=== PATIENT | female | born 1990 | race Caucasian/White ===

== ENCOUNTER 2017-06-05 07:13 | Inpatient (IN) ==
[2017-06-05] MEDS ORDERED: TORADOL IV ONE (07:41)
[2017-06-05] MEDS ORDERED: NS 1,000 ML IV ONE (07:41)
[2017-06-05] MEDS ORDERED: ZOFRAN IV ONE (07:41)
[2017-06-05 08:15] LABS: MANUAL DIFF NEEDED? NO; URINE SOURCE CLEAN CATCH
[2017-06-05 08:22] LABS: BILIRUBIN URINE NEGATIVE (NEGATIVE); BLOOD URINE NEGATIVE (NEGATIVE); COLOR YELLOW; GLUCOSE URINE NEGATIVE (NEGATIVE); LEUKOCYTES URINE LARGE (NEGATIVE); NITRITE URINE NEGATIVE (NEGATIVE); PROTEIN URINE 50 mg/dL (NEGATIVE); SP GRAVITY URINE 1.041; TURBIDITY URINE HAZY (CLEAR); UROBILINOGEN URINE 4 mg/dL (NORMAL)
[2017-06-05 08:23] LABS: BASO% 0.2 % (0.0-0.8); EOS% 2.4 % (0.0-10.0); HEMATOCRIT 39.9 % (37.0-47.0); HEMOGLOBIN 12.8 g/dL (12.0-16.0); IMM GRAN# 0.03 X1000 (0.0-0.04); IMM GRAN% 0.2 % (0.0-0.5); LYMPH# 2.76 X1000 (1.2-3.4); LYMPH% 21.9 % (20.5-51.1); MCH 26.8 PG (27-31); MCHC 32.1 g/dL (33-37); MCV 83.6 FL (81-99); MONO# 0.77 X1000 (0.11-0.59); MONO% 6.1 % (1.7-9.3); NEUT% 69.2 % (42.2-75.2); PLT 385 X1000 (130-400); RBC 4.77 XMIL (4.2-5.4); URINE MICRO REVIEW NEEDED? YES
[2017-06-05 08:26] LABS: UR EPITHELIAL CELLS >10 /HPF (<10); URINE BACTERIA 1+ /HPF; URINE CULTURE NEEDED? YES; URINE RBC <10 /HPF (<10); URINE WBC TNTC /HPF (<10)
[2017-06-05 08:40] LABS: URINE CASTS NONE SEEN; URINE CRYSTALS NONE SEEN
[2017-06-05 08:43] LABS: AGAP 11; ALBUMIN 3.9 g/dL (3.5-5.0); ALKALINE PHOSPHATASE 101 U/L (32-104); AMYLASE 12 U/L (20-200); BUN 13 mg/dL (8-22); CALCIUM 8.8 mg/dL (8.8-10.2); CHLORIDE 99 mmol/L (98-107); COSMO 278; GOT 96 U/L (10-30); GPT 69 U/L (10-36); LIPASE 20 U/L (13-60); POTASSIUM 3.6 mmol/L (3.5-5.1); SODIUM 139 mmol/L (136-145); TCO2 29 mmol/L (25-35); TOTAL BILIRUBIN 0.22 mg/dL (0.20-1.00); TOTAL PROTEIN 7.1 g/dL (6.3-8.3)
[2017-06-05] MEDS ORDERED: ROCEPHIN 2 GM in NS 50 ML IV ONE (08:56)
[2017-06-05] MEDS ORDERED: MORPHINE IV ONE (09:10)
[2017-06-05] MEDS ORDERED: DIPRIVAN 1% ONE (10:36)
[2017-06-05] MEDS ORDERED: VERSED ONE (10:36)
[2017-06-05] MEDS ORDERED: ZOFRAN ONE ×2 (10:42→12:00)
[2017-06-05] MEDS ORDERED: XYLOCAINE-MPF 2% ONE (10:42)
[2017-06-05] MEDS ORDERED: QUELICIN (DOSE) ONE (10:42)
[2017-06-05] MEDS ORDERED: FENTANYL ONE (10:43)
[2017-06-05] MEDS ORDERED: REGLAN ONE (11:11)
[2017-06-05] MEDS ORDERED: PEPCID ONE (11:11)
[2017-06-05] MEDS ORDERED: SODIUM CHLORIDE 0.9% ONE (11:13)
[2017-06-05] MEDS ORDERED: MARCAINE 0.25% PF ONE (11:13)
[2017-06-05] MEDS ORDERED: LR 1,000 ML ONE ×2 (11:13→12:09)
[2017-06-05] MEDS ORDERED: OFIRMEV 1000 MG/ISOTONIC SOLN 1,000 MG/100 ML BOTTLE ONE (11:45)
[2017-06-05] MEDS ORDERED: DECADRON ONE (11:45)
[2017-06-05] MEDS ORDERED: ROBINUL ONE (13:12)
[2017-06-05] MEDS ORDERED: NS 1,000 ML ONE (13:58)
[2017-06-05] MEDS ORDERED: TORADOL ONE (14:32)
[2017-06-05] MEDS ORDERED: NORCO-10 ONE (15:00)
[2017-06-05] MEDS: DILAUDID IV PRN ×3 (15:48→22:17)
[2017-06-05] MEDS: NS 1,000 ML IV SCH (15:50)
[2017-06-05] MEDS: ROCEPHIN 1 GM in NS 50 ML IV SCH (21:05)
[2017-06-05] MEDS: NORCO-10 PO PRN (21:05)
[2017-06-05] MEDS: ZOFRAN IV PRN (22:17)
[2017-06-05] MEDS ORDERED: MYLICON PO PRN (22:54)
[2017-06-05] MEDS: MYLICON PO PRN (23:10)
[2017-06-06] MEDS: DILAUDID IV PRN ×9 (00:17→23:06)
[2017-06-06] MEDS: NS 1,000 ML IV SCH ×2 (02:07→16:45)
[2017-06-06 05:25] LABS: BASO% 0.1 % (0.0-0.8); HEMATOCRIT 42.3 % (37.0-47.0); HEMOGLOBIN 13.4 g/dL (12.0-16.0); IMM GRAN# 0.02 X1000 (0.0-0.04); IMM GRAN% 0.2 % (0.0-0.5); LYMPH# 0.87 X1000 (1.2-3.4); LYMPH% 7.8 % (20.5-51.1); MCH 26.7 PG (27-31); MCHC 31.7 g/dL (33-37); MCV 84.4 FL (81-99); MONO# 0.55 X1000 (0.11-0.59); MONO% 4.9 % (1.7-9.3); MPV 10.4 FL (7.4-10.4); PLT 459 X1000 (130-400); RBC 5.01 XMIL (4.2-5.4)
[2017-06-06 05:26] LABS: MANUAL DIFF NEEDED? NO
[2017-06-06 05:38] LABS: AGAP 9; ALBUMIN 3.9 g/dL (3.5-5.0); ALKALINE PHOSPHATASE 98 U/L (32-104); BUN 7 mg/dL (8-22); CALCIUM 8.7 mg/dL (8.8-10.2); CHLORIDE 100 mmol/L (98-107); COSMO 275; GOT 70 U/L (10-30); GPT 100 U/L (10-36); POTASSIUM 4.7 mmol/L (3.5-5.1); SODIUM 138 mmol/L (136-145); TCO2 29 mmol/L (25-35); TOTAL BILIRUBIN 0.29 mg/dL (0.20-1.00); TOTAL PROTEIN 7.4 g/dL (6.3-8.3)
[2017-06-06] MEDS: MYLICON PO PRN ×2 (08:08→17:35)
[2017-06-06] MEDS: ROCEPHIN 1 GM in NS 50 ML IV SCH ×2 (08:39→20:36)
[2017-06-06] MEDS: MILK OF MAGNESIA PO PRN (08:47)
[2017-06-06] MEDS: COLACE PO PRN (08:47)
[2017-06-06] MEDS: NORCO-10 PO PRN (13:42)
[2017-06-06] MEDS ORDERED: TORADOL IV ONE (17:23)
[2017-06-06] MEDS ORDERED: ROCEPHIN ONE (20:01)
[2017-06-07] MEDS: NS 1,000 ML IV SCH ×2 (01:02→09:50)
[2017-06-07] MEDS: DILAUDID IV PRN ×6 (01:07→22:09)
[2017-06-07 05:21] LABS: MANUAL DIFF NEEDED? NO
[2017-06-07 05:29] LABS: BASO% 0.2 % (0.0-0.8); EOS# 0.07 X1000 (0.0-0.7); EOS% 0.7 % (0.0-10.0); HEMATOCRIT 39.7 % (37.0-47.0); HEMOGLOBIN 12.3 g/dL (12.0-16.0); IMM GRAN# 0.03 X1000 (0.0-0.04); IMM GRAN% 0.3 % (0.0-0.5); LYMPH# 1.94 X1000 (1.2-3.4); LYMPH% 19.6 % (20.5-51.1); MCH 26.7 PG (27-31); MCV 86.1 FL (81-99); MONO# 0.98 X1000 (0.11-0.59); MONO% 9.9 % (1.7-9.3); MPV 10.1 FL (7.4-10.4); NEUT% 69.3 % (42.2-75.2); PLT 393 X1000 (130-400); RBC 4.61 XMIL (4.2-5.4)
[2017-06-07] MEDS: MYLICON PO PRN ×2 (05:38→18:08)
[2017-06-07 05:51] LABS: AGAP 11; ALBUMIN 3.5 g/dL (3.5-5.0); ALKALINE PHOSPHATASE 85 U/L (32-104); BUN 8 mg/dL (8-22); CALCIUM 8.7 mg/dL (8.8-10.2); CHLORIDE 97 mmol/L (98-107); COSMO 275; GOT 30 U/L (10-30); GPT 68 U/L (10-36); POTASSIUM 4.2 mmol/L (3.5-5.1); SODIUM 138 mmol/L (136-145); TCO2 30 mmol/L (25-35); TOTAL BILIRUBIN 0.32 mg/dL (0.20-1.00)
[2017-06-07] MEDS: COLACE PO PRN ×2 (05:55→18:13)
[2017-06-07] MEDS: ZOFRAN IV PRN ×5 (05:55→23:31)
[2017-06-07] MEDS: NORCO-10 PO PRN ×5 (05:55→23:30)
[2017-06-07] MEDS: MILK OF MAGNESIA PO PRN (08:24)
[2017-06-07] MEDS: ROCEPHIN 1 GM in NS 50 ML IV SCH ×2 (08:24→21:06)
[2017-06-07] MEDS: LOVENOX SUBQ SCH (09:50)
[2017-06-07] MEDS: PERIDEX MT SCH (21:05)
[2017-06-07] MEDS ORDERED: MELATONIN PO ONE (23:47)
[2017-06-08] MEDS: DILAUDID IV PRN ×3 (00:59→23:31)
[2017-06-08] MEDS: MELATONIN PO SCH ×2 (02:41→20:56)
[2017-06-08] MEDS: NORCO-10 PO PRN ×2 (04:47→12:14)
[2017-06-08] MEDS: NS 1,000 ML IV SCH ×3 (04:47→23:53)
[2017-06-08 06:19] LABS: MANUAL DIFF NEEDED? NO
[2017-06-08 06:49] LABS: AGAP 11; ALBUMIN 3.3 g/dL (3.5-5.0); ALKALINE PHOSPHATASE 89 U/L (32-104); BUN 7 mg/dL (8-22); CALCIUM 8.7 mg/dL (8.8-10.2); CHLORIDE 93 mmol/L (98-107); COSMO 269; GOT 37 U/L (10-30); GPT 53 U/L (10-36); POTASSIUM 4.4 mmol/L (3.5-5.1); SODIUM 135 mmol/L (136-145); TCO2 31 mmol/L (25-35); TOTAL BILIRUBIN 0.62 mg/dL (0.20-1.00); TOTAL PROTEIN 6.7 g/dL (6.3-8.3)
[2017-06-08 07:09] LABS: BASO% 0.2 % (0.0-0.8); EOS# 0.12 X1000 (0.0-0.7); EOS% 1.1 % (0.0-10.0); HEMATOCRIT 38.9 % (37.0-47.0); HEMOGLOBIN 12.1 g/dL (12.0-16.0); IMM GRAN# 0.04 X1000 (0.0-0.04); IMM GRAN% 0.4 % (0.0-0.5); LYMPH# 1.57 X1000 (1.2-3.4); MCH 26.8 PG (27-31); MCHC 31.1 g/dL (33-37); MCV 86.1 FL (81-99); MONO# 1.19 X1000 (0.11-0.59); MONO% 11.4 % (1.7-9.3); MPV 9.8 FL (7.4-10.4); NEUT% 71.9 % (42.2-75.2); PLT 429 X1000 (130-400); RBC 4.52 XMIL (4.2-5.4)
[2017-06-08] MEDS: ROCEPHIN 1 GM in NS 50 ML IV SCH ×2 (08:53→20:57)
[2017-06-08] MEDS: PERIDEX MT SCH ×2 (08:54→20:56)
[2017-06-08] MEDS: LOVENOX SUBQ SCH (08:54)
[2017-06-08] MEDS ORDERED: MILK OF MAGNESIA PO ONE (14:15)
[2017-06-08] MEDS: TORADOL IV PRN ×2 (15:13→20:56)
[2017-06-09] MEDS: MYLICON PO PRN (00:38)
[2017-06-09 05:20] LABS: MANUAL DIFF NEEDED? NO
[2017-06-09 05:23] LABS: BASO% 0.2 % (0.0-0.8); EOS# 0.28 X1000 (0.0-0.7); EOS% 3.1 % (0.0-10.0); HEMATOCRIT 35.2 % (37.0-47.0); HEMOGLOBIN 10.8 g/dL (12.0-16.0); IMM GRAN# 0.02 X1000 (0.0-0.04); IMM GRAN% 0.2 % (0.0-0.5); LYMPH# 1.88 X1000 (1.2-3.4); LYMPH% 20.6 % (20.5-51.1); MCH 26.3 PG (27-31); MCHC 30.7 g/dL (33-37); MCV 85.9 FL (81-99); MONO# 0.99 X1000 (0.11-0.59); MONO% 10.8 % (1.7-9.3); MPV 9.9 FL (7.4-10.4); NEUT% 65.1 % (42.2-75.2); PLT 382 X1000 (130-400)
[2017-06-09] MEDS: NS 1,000 ML IV SCH ×2 (06:35→08:19)
[2017-06-09] MEDS ORDERED: TORADOL IV PRN (07:57)
[2017-06-09] MEDS: NORCO-10 PO PRN ×3 (08:19→16:27)
[2017-06-09] MEDS: PERIDEX MT SCH ×2 (08:20→22:31)
[2017-06-09] MEDS: LOVENOX SUBQ SCH (08:20)
[2017-06-09] MEDS: MAALOX PLUS LIQUID PO PRN (15:57)
[2017-06-09] MEDS: TORADOL PO PRN ×2 (15:57→22:30)
[2017-06-09] MEDS: MELATONIN PO SCH (22:31)
[2017-06-10] MEDS: NORCO-10 PO PRN ×4 (03:43→22:15)
[2017-06-10] MEDS: ZOFRAN IV PRN ×2 (03:43→22:15)
[2017-06-10] MEDS: TORADOL PO PRN (04:38)
[2017-06-10] MEDS: NS 1,000 ML IV SCH (04:38)
[2017-06-10] MEDS: MYLICON PO PRN (08:00)
[2017-06-10] MEDS: LOVENOX SUBQ SCH ×2 (08:01→14:08)
[2017-06-10] MEDS: PERIDEX MT SCH ×2 (08:01→22:15)
[2017-06-10] MEDS: MELATONIN PO SCH (22:15)
[2017-06-11] MEDS: NORCO-10 PO PRN ×5 (01:07→21:25)
[2017-06-11] MEDS: TORADOL PO PRN ×3 (01:07→12:32)
[2017-06-11] MEDS: MAALOX PLUS LIQUID PO PRN (01:29)
[2017-06-11] MEDS: NS 1,000 ML IV SCH ×2 (01:30→21:33)
[2017-06-11] MEDS: PERIDEX MT SCH ×2 (08:12→21:23)
[2017-06-11] MEDS: LOVENOX SUBQ SCH ×2 (08:12→09:50)
[2017-06-11] MEDS: MILK OF MAGNESIA PO PRN (11:00)
[2017-06-11] MEDS ORDERED: ROBAXIN PO PRN (11:05)
[2017-06-11] MEDS ORDERED: ROBAXIN PO ONE (11:06)
[2017-06-11] MEDS ORDERED: DIFLUCAN PO ONE (11:30)
[2017-06-11] MEDS: ZOFRAN IV PRN (12:32)
[2017-06-11] MEDS: ROBAXIN PO PRN ×2 (16:09→22:47)
[2017-06-11] MEDS ORDERED: DILAUDID IV ONE (17:00)
[2017-06-11] MEDS ORDERED: DULCOLAX PR ONE (17:37)
[2017-06-11] MEDS: CARAFATE LIQUID PO SCH ×2 (17:54→21:23)
[2017-06-11] MEDS: DILAUDID IV ONE (17:55)
[2017-06-11] MEDS: PROTONIX IV SCH (18:08)
[2017-06-11] MEDS: SODIUM CHLORIDE 0.9% INJ SCH (18:08)
[2017-06-11] MEDS ORDERED: FLEET ENEMA PR ONE (18:20)
[2017-06-11] MEDS ORDERED: MIRALAX PO ONE (18:20)
[2017-06-11 18:58] LABS: MANUAL DIFF NEEDED? NO
[2017-06-11 19:00] LABS: BASO% 0.4 % (0.0-0.8); EOS# 0.31 X1000 (0.0-0.7); EOS% 3.2 % (0.0-10.0); HEMATOCRIT 37.6 % (37.0-47.0); HEMOGLOBIN 11.8 g/dL (12.0-16.0); IMM GRAN# 0.05 X1000 (0.0-0.04); IMM GRAN% 0.5 % (0.0-0.5); LYMPH% 13.5 % (20.5-51.1); MCH 26.5 PG (27-31); MCHC 31.4 g/dL (33-37); MCV 84.5 FL (81-99); MONO% 9.3 % (1.7-9.3); MPV 9.5 FL (7.4-10.4); NEUT% 73.1 % (42.2-75.2); PLT 427 X1000 (130-400); RBC 4.45 XMIL (4.2-5.4)
[2017-06-11 19:21] LABS: AGAP 15; ALBUMIN 3.4 g/dL (3.5-5.0); ALKALINE PHOSPHATASE 121 U/L (32-104); BUN 11 mg/dL (8-22); CALCIUM 8.8 mg/dL (8.8-10.2); CHLORIDE 97 mmol/L (98-107); COSMO 278; GOT 28 U/L (10-30); GPT 43 U/L (10-36); LIPASE 11 U/L (13-60); POTASSIUM 4.6 mmol/L (3.5-5.1); SODIUM 139 mmol/L (136-145); TCO2 27 mmol/L (25-35); TOTAL BILIRUBIN 0.65 mg/dL (0.20-1.00); TOTAL PROTEIN 6.4 g/dL (6.3-8.3)
[2017-06-11] MEDS: ZOSYN 3.375 GM in NS 50 ML IV SCH (21:22)
[2017-06-11] MEDS: MYLICON PO PRN (22:47)
[2017-06-11] MEDS: MELATONIN PO SCH (23:37)
[2017-06-12] MEDS: ZOSYN 3.375 GM in NS 50 ML IV SCH ×2 (01:09→08:29)
[2017-06-12] MEDS: NORCO-10 PO PRN ×6 (01:09→22:51)
[2017-06-12] MEDS: CARAFATE LIQUID PO SCH ×4 (03:30→21:38)
[2017-06-12] MEDS: ROBAXIN PO PRN ×2 (04:52→11:42)
[2017-06-12] MEDS: SODIUM CHLORIDE 0.9% INJ SCH ×2 (06:13→19:06)
[2017-06-12] MEDS: PROTONIX IV SCH ×2 (06:14→19:06)
[2017-06-12] MEDS: LOVENOX SUBQ SCH (08:30)
[2017-06-12] MEDS: ZOFRAN PO PRN (08:30)
[2017-06-12] MEDS ORDERED: DILAUDID IV ONE (09:21)
[2017-06-12] MEDS ORDERED: ZOFRAN IV ONE (09:21)
[2017-06-12] MEDS ORDERED: DILAUDID ONE (09:30)
[2017-06-12] MEDS: DILAUDID IV ONE (09:34)
[2017-06-12] MEDS: PERIDEX MT SCH ×2 (09:41→21:38)
[2017-06-12] MEDS: DILAUDID IV PRN ×4 (13:34→21:32)
[2017-06-12] MEDS: ZOFRAN IV PRN (16:22)
[2017-06-12] MEDS: MELATONIN PO SCH (21:38)
[2017-06-13] MEDS: CARAFATE LIQUID PO SCH ×4 (02:10→20:56)
[2017-06-13] MEDS: DILAUDID IV PRN ×6 (05:28→22:23)
[2017-06-13] MEDS: PROTONIX IV SCH ×2 (05:28→17:35)
[2017-06-13] MEDS: NORCO-10 PO PRN ×4 (06:18→23:58)
[2017-06-13 06:32] LABS: BASO% 0.2 % (0.0-0.8); EOS# 0.25 X1000 (0.0-0.7); EOS% 1.9 % (0.0-10.0); HEMATOCRIT 36.6 % (37.0-47.0); HEMOGLOBIN 11.3 g/dL (12.0-16.0); LYMPH# 1.24 X1000 (1.2-3.4); LYMPH% 9.5 % (20.5-51.1); MANUAL DIFF NEEDED? NO; MCHC 30.9 g/dL (33-37); MCV 87.4 FL (81-99); MONO# 1.55 X1000 (0.11-0.59); MONO% 11.9 % (1.7-9.3); MPV 9.4 FL (7.4-10.4); NEUT% 76.5 % (42.2-75.2); PLT 524 X1000 (130-400); RBC 4.19 XMIL (4.2-5.4)
[2017-06-13] MEDS: LOVENOX SUBQ SCH ×2 (07:46→10:23)
[2017-06-13] MEDS: ROBAXIN PO PRN ×2 (07:50→20:56)
[2017-06-13] MEDS: PERIDEX MT SCH ×2 (10:23→20:56)
[2017-06-13] MEDS: DIFLUCAN PO SCH (10:46)
[2017-06-13] MEDS: NS 1,000 ML IV SCH (12:09)
[2017-06-13] MEDS: SODIUM CHLORIDE 0.9% INJ SCH (17:35)
[2017-06-13] MEDS: MELATONIN PO SCH (20:56)
[2017-06-14] MEDS: ZOFRAN PO PRN
[2017-06-14] MEDS: CARAFATE LIQUID PO SCH ×4 (01:31→20:21)
[2017-06-14] MEDS: DILAUDID IV PRN ×7 (01:31→22:33)
[2017-06-14] MEDS: PROTONIX IV SCH ×3 (06:22→18:29)
[2017-06-14] MEDS: NORCO-10 PO PRN ×4 (06:22→20:21)
[2017-06-14] MEDS: SODIUM CHLORIDE 0.9% INJ SCH ×3 (06:22→16:04)
[2017-06-14 10:33] LABS: MANUAL DIFF NEEDED? NO
[2017-06-14 10:38] LABS: BASO% 0.2 % (0.0-0.8); EOS# 0.18 X1000 (0.0-0.7); EOS% 1.4 % (0.0-10.0); HEMATOCRIT 33.5 % (37.0-47.0); HEMOGLOBIN 10.3 g/dL (12.0-16.0); IMM GRAN# 0.08 X1000 (0.0-0.04); IMM GRAN% 0.6 % (0.0-0.5); LYMPH# 1.31 X1000 (1.2-3.4); LYMPH% 10.4 % (20.5-51.1); MCH 26.1 PG (27-31); MCHC 30.7 g/dL (33-37); MONO# 1.29 X1000 (0.11-0.59); MONO% 10.2 % (1.7-9.3); MPV 9.4 FL (7.4-10.4); NEUT% 77.2 % (42.2-75.2); PLT 541 X1000 (130-400); RBC 3.94 XMIL (4.2-5.4)
[2017-06-14 11:03] LABS: ALLEN TEST NO; BE 9.7 mmoll (-3.0-3.0); BLOOD TYPE ARTERIAL; DRAW SITE R BRACHIAL; METHB 1.3 % (0.0-1.5); PO2(98.6) 61 mmHg (60-100); SAMPLE BLOOD; SAO2 95.3 % (95.0-100.0); THB 10.8 g/dL (11.5-17.4); pH(98.6) 7.44 (7.35-7.45)
[2017-06-14] MEDS: LOVENOX SUBQ SCH (11:03)
[2017-06-14] MEDS: DIFLUCAN PO SCH (11:03)
[2017-06-14] MEDS: PERIDEX MT SCH ×2 (11:04→20:21)
[2017-06-14 11:08] LABS: MODALITY CANNULA; PCO2(98.6) 52 mmHg (35-45)
[2017-06-14 11:32] LABS: AGAP 10; ALBUMIN 2.9 g/dL (3.5-5.0); ALKALINE PHOSPHATASE 130 U/L (32-104); AMYLASE 7 U/L (20-200); BUN 9 mg/dL (8-22); CALCIUM 8.8 mg/dL (8.8-10.2); CHLORIDE 95 mmol/L (98-107); COSMO 277; GOT 16 U/L (10-30); GPT 33 U/L (10-36); POTASSIUM 4.3 mmol/L (3.5-5.1); SODIUM 138 mmol/L (136-145); TCO2 33 mmol/L (25-35); TOTAL BILIRUBIN 0.66 mg/dL (0.20-1.00); TOTAL PROTEIN 6.3 g/dL (6.3-8.3)
[2017-06-14] MEDS: MELATONIN PO SCH (20:21)
[2017-06-15] MEDS: NORCO-10 PO PRN ×6 (00:43→22:03)
[2017-06-15] MEDS: DILAUDID IV PRN ×3 (01:46→20:40)
[2017-06-15] MEDS: ROBAXIN PO PRN ×3 (01:49→18:08)
[2017-06-15] MEDS: CARAFATE LIQUID PO SCH ×4 (01:49→20:46)
[2017-06-15] MEDS: PROTONIX IV SCH ×2 (05:15→18:09)
[2017-06-15] MEDS ORDERED: SALINE LOCK IV FLUID XX ONE (08:15)
[2017-06-15] MEDS: PERIDEX MT SCH ×2 (10:06→22:28)
[2017-06-15] MEDS: DIFLUCAN PO SCH (10:07)
[2017-06-15] MEDS: LOVENOX SUBQ SCH (10:07)
[2017-06-15] MEDS: SODIUM CHLORIDE 0.9% INJ SCH (18:09)
[2017-06-15] MEDS: ZOSYN 3.375 GM in NS 50 ML IV SCH (20:40)
[2017-06-15] MEDS: MELATONIN PO SCH (20:45)
[2017-06-15] MEDS ORDERED: TORADOL IV ONE (20:53)
[2017-06-15] MEDS: MYLICON PO PRN (22:02)
[2017-06-16] MEDS: NS 1,000 ML IV SCH ×2 (00:16→19:59)
[2017-06-16] MEDS: DILAUDID IV PRN ×6 (00:17→19:59)
[2017-06-16] MEDS: ROBAXIN PO PRN ×2 (00:19→23:06)
[2017-06-16] MEDS: CARAFATE LIQUID PO SCH (01:14)
[2017-06-16] MEDS: ZOSYN 3.375 GM in NS 50 ML IV SCH ×4 (01:15→19:59)
[2017-06-16] MEDS: ZOFRAN IV PRN (04:39)
[2017-06-16] MEDS: PROTONIX IV SCH ×2 (05:08→19:59)
[2017-06-16] MEDS ORDERED: SENSORCAINE 0.5%-EPI 1:200,000 ONE (07:22)
[2017-06-16] MEDS ORDERED: LR 1,000 ML ONE (07:23)
[2017-06-16] MEDS ORDERED: DIPRIVAN 1% ONE (08:10)
[2017-06-16] MEDS ORDERED: QUELICIN (DOSE) ONE (08:12)
[2017-06-16] MEDS ORDERED: STERILE WATER INJ. ONE (08:35)
[2017-06-16] MEDS ORDERED: ROBINUL ONE (08:35)
[2017-06-16] MEDS ORDERED: NORCURON ONE (08:35)
[2017-06-16] MEDS ORDERED: ZOFRAN ONE (08:35)
[2017-06-16] MEDS ORDERED: NEOSTIGMINE ONE (08:36)
[2017-06-16] MEDS: NORCO-10 PO PRN ×2 (11:31→23:05)
[2017-06-16] MEDS: PERIDEX MT SCH ×2 (14:32→20:01)
[2017-06-16] MEDS: LOVENOX SUBQ SCH (14:34)
[2017-06-16] MEDS: DIFLUCAN PO SCH (14:35)
[2017-06-16] MEDS: MELATONIN PO SCH (20:00)
[2017-06-16] MEDS: BENTYL PO SCH (20:00)
[2017-06-17] MEDS: ZOSYN 3.375 GM in NS 50 ML IV SCH ×5 (02:11→20:00)
[2017-06-17] MEDS: DILAUDID IV PRN ×5 (04:45→19:30)
[2017-06-17] MEDS: PROTONIX IV SCH ×2 (04:50→17:28)
[2017-06-17] MEDS: NORCO-10 PO PRN ×3 (06:59→21:30)
[2017-06-17] MEDS: BENTYL PO SCH ×2 (09:38→20:00)
[2017-06-17] MEDS: DIFLUCAN PO SCH (09:38)
[2017-06-17] MEDS: LOVENOX SUBQ SCH (09:38)
[2017-06-17] MEDS: PERIDEX MT SCH ×2 (09:39→20:00)
[2017-06-17] MEDS: MYLICON PO PRN (15:11)
[2017-06-17] MEDS: NS 1,000 ML IV SCH ×3 (17:27→17:28)
[2017-06-17] MEDS: MELATONIN PO SCH (20:00)
[2017-06-18] MEDS: ZOSYN 3.375 GM in NS 50 ML IV SCH ×3 (01:01→15:16)
[2017-06-18] MEDS: DILAUDID IV PRN ×5 (01:01→22:27)
[2017-06-18] MEDS: NORCO-10 PO PRN ×2 (05:29→12:08)
[2017-06-18] MEDS: PROTONIX IV SCH ×2 (05:49→20:03)
[2017-06-18 06:40] LABS: MANUAL DIFF NEEDED? NO
[2017-06-18 06:55] LABS: BASO% 0.3 % (0.0-0.8); EOS% 4.4 % (0.0-10.0); HEMATOCRIT 30.9 % (37.0-47.0); HEMOGLOBIN 9.1 g/dL (12.0-16.0); IMM GRAN# 0.07 X1000 (0.0-0.04); IMM GRAN% 0.8 % (0.0-0.5); LYMPH# 1.96 X1000 (1.2-3.4); LYMPH% 21.7 % (20.5-51.1); MCH 25.7 PG (27-31); MCHC 29.4 g/dL (33-37); MCV 87.3 FL (81-99); MONO# 0.75 X1000 (0.11-0.59); MONO% 8.3 % (1.7-9.3); MPV 9.5 FL (7.4-10.4); NEUT% 64.5 % (42.2-75.2); PLT 691 X1000 (130-400); RBC 3.54 XMIL (4.2-5.4)
[2017-06-18 07:11] LABS: AGAP 10; ALBUMIN 2.7 g/dL (3.5-5.0); ALKALINE PHOSPHATASE 126 U/L (32-104); BUN 5 mg/dL (8-22); CALCIUM 8.9 mg/dL (8.8-10.2); CHLORIDE 101 mmol/L (98-107); COSMO 284; GOT 16 U/L (10-30); GPT 22 U/L (10-36); POTASSIUM 4.3 mmol/L (3.5-5.1); SODIUM 144 mmol/L (136-145); TCO2 33 mmol/L (25-35); TOTAL BILIRUBIN 0.51 mg/dL (0.20-1.00); TOTAL PROTEIN 5.5 g/dL (6.3-8.3)
[2017-06-18] MEDS: PERIDEX MT SCH ×2 (08:32→22:27)
[2017-06-18] MEDS: LOVENOX SUBQ SCH (08:33)
[2017-06-18] MEDS: BENTYL PO SCH ×3 (08:35→22:31)
[2017-06-18] MEDS: DIFLUCAN PO SCH ×2 (08:35→12:09)
[2017-06-18] MEDS: SODIUM CHLORIDE 0.9% INJ SCH (20:04)
[2017-06-18] MEDS: MELATONIN PO SCH (22:27)
[2017-06-18] MEDS: DULCOLAX PR SCH (22:29)
[2017-06-19] MEDS: ZOSYN 3.375 GM in NS 50 ML IV SCH ×5 (01:57→20:59)
[2017-06-19] MEDS: DILAUDID IV PRN ×5 (03:22→21:01)
[2017-06-19] MEDS: ZOFRAN IV PRN (03:40)
[2017-06-19] MEDS: PROTONIX IV SCH ×3 (03:40→17:51)
[2017-06-19] MEDS: NS 1,000 ML IV SCH ×2 (05:30→08:26)
[2017-06-19] MEDS: BENTYL PO SCH ×2 (08:30→21:00)
[2017-06-19] MEDS: LOVENOX SUBQ SCH (08:31)
[2017-06-19] MEDS: DIFLUCAN PO SCH (08:31)
[2017-06-19] MEDS: PERIDEX MT SCH ×2 (09:32→21:01)
[2017-06-19] MEDS: DULCOLAX PR SCH ×2 (09:47→21:00)
[2017-06-19] MEDS ORDERED: DIPRIVAN 1% ONE (10:44)
[2017-06-19] MEDS ORDERED: ROBINUL ONE ×2 (10:44→12:18)
[2017-06-19] MEDS ORDERED: QUELICIN (DOSE) ONE (10:44)
[2017-06-19] MEDS ORDERED: XYLOCAINE-MPF 2% ONE (10:44)
[2017-06-19] MEDS ORDERED: DECADRON ONE (12:03)
[2017-06-19] MEDS ORDERED: ZOFRAN ONE (12:03)
[2017-06-19] MEDS ORDERED: ZEMURON ONE (12:09)
[2017-06-19] MEDS ORDERED: OFIRMEV 1000 MG/ISOTONIC SOLN 1,000 MG/100 ML BOTTLE ONE (12:13)
[2017-06-19] MEDS ORDERED: NEOSTIGMINE ONE (12:17)
[2017-06-19] MEDS ORDERED: TORADOL ONE (12:30)
[2017-06-19] MEDS ORDERED: DEMEROL ONE ×2 (13:29→13:37)
[2017-06-19] MEDS ORDERED: LR 500 ML ONE (13:42)
[2017-06-19] MEDS: NORCO-10 PO PRN ×2 (16:03→23:22)
[2017-06-19] MEDS: SODIUM CHLORIDE 0.9% INJ SCH (17:51)
[2017-06-19] MEDS: MELATONIN PO SCH (21:00)
[2017-06-20] MEDS: DILAUDID IV PRN ×7 (01:37→23:59)
[2017-06-20] MEDS: ZOSYN 3.375 GM in NS 50 ML IV SCH ×5 (04:19→21:27)
[2017-06-20] MEDS: NS 1,000 ML IV SCH ×3 (04:33→23:59)
[2017-06-20] MEDS: PROTONIX IV SCH ×4 (04:33→16:58)
[2017-06-20] MEDS: DIFLUCAN PO SCH (08:18)
[2017-06-20] MEDS: BENTYL PO SCH ×2 (08:18→20:07)
[2017-06-20] MEDS: LOVENOX SUBQ SCH (08:18)
[2017-06-20] MEDS: PERIDEX MT SCH ×2 (08:18→23:27)
[2017-06-20] MEDS: DULCOLAX PR SCH ×3 (08:18→20:08)
[2017-06-20] MEDS: NORCO-10 PO PRN ×3 (10:32→18:20)
[2017-06-20 12:50] LABS: BASO% 0.1 % (0.0-0.8); HEMATOCRIT 32.6 % (37.0-47.0); HEMOGLOBIN 9.9 g/dL (12.0-16.0); IMM GRAN# 0.05 X1000 (0.0-0.04); IMM GRAN% 0.5 % (0.0-0.5); LYMPH# 1.52 X1000 (1.2-3.4); LYMPH% 14.4 % (20.5-51.1); MANUAL DIFF NEEDED? YES; MCH 26.2 PG (27-31); MCHC 30.4 g/dL (33-37); MCV 86.2 FL (81-99); MONO% 4.7 % (1.7-9.3); MPV 9.3 FL (7.4-10.4); NEUT% 80.3 % (42.2-75.2); PLT 801 X1000 (130-400); RBC 3.78 XMIL (4.2-5.4)
[2017-06-20 13:08] LABS: AGAP 11; ALBUMIN 2.7 g/dL (3.5-5.0); ALKALINE PHOSPHATASE 118 U/L (32-104); BUN 9 mg/dL (8-22); CALCIUM 8.6 mg/dL (8.8-10.2); CHLORIDE 99 mmol/L (98-107); COSMO 275; GOT 24 U/L (10-30); GPT 25 U/L (10-36); POTASSIUM 4.4 mmol/L (3.5-5.1); SODIUM 138 mmol/L (136-145); TCO2 28 mmol/L (25-35); TOTAL BILIRUBIN 0.46 mg/dL (0.20-1.00); TOTAL PROTEIN 6.4 g/dL (6.3-8.3)
[2017-06-20 13:21] LABS: LYMPHS 17 % (21-51); MONO 4 % (1-9)
[2017-06-20 13:22] LABS: HYPOCHROM OCCASIONAL
[2017-06-20] MEDS: SODIUM CHLORIDE 0.9% INJ SCH (16:58)
[2017-06-20] MEDS: CARAFATE LIQUID PO SCH ×2 (20:07→23:59)
[2017-06-20] MEDS: MELATONIN PO SCH (20:07)
[2017-06-21] MEDS: ZOSYN 3.375 GM in NS 50 ML IV SCH ×6 (02:36→21:22)
[2017-06-21] MEDS: NORCO-10 PO PRN ×4 (02:36→21:21)
[2017-06-21] MEDS: DILAUDID IV PRN ×6 (03:58→22:44)
[2017-06-21] MEDS: NS 1,000 ML IV SCH ×2 (04:34→23:40)
[2017-06-21] MEDS: MYLICON PO PRN (04:34)
[2017-06-21] MEDS: CARAFATE LIQUID PO SCH ×4 (04:35→23:40)
[2017-06-21] MEDS: PROTONIX IV SCH ×2 (05:49→17:45)
[2017-06-21] MEDS: DULCOLAX PR SCH ×3 (08:27→21:21)
[2017-06-21] MEDS: BENTYL PO SCH ×2 (08:27→21:21)
[2017-06-21] MEDS: DIFLUCAN PO SCH (08:27)
[2017-06-21] MEDS: LOVENOX SUBQ SCH (08:27)
[2017-06-21] MEDS: PERIDEX MT SCH ×2 (10:49→21:21)
[2017-06-21] MEDS ORDERED: TEARISOL OPH SOLUTION OPH PRN (11:24)
[2017-06-21] MEDS: MELATONIN PO SCH (21:21)
[2017-06-22] MEDS: CARAFATE LIQUID PO SCH ×2 (02:25→09:20)
[2017-06-22] MEDS: DILAUDID IV PRN ×3 (02:25→09:21)
[2017-06-22] MEDS: NORCO-10 PO PRN ×2 (03:41→08:10)
[2017-06-22] MEDS: ZOSYN 3.375 GM in NS 50 ML IV SCH ×2 (04:28→09:31)
[2017-06-22] MEDS: PROTONIX IV SCH (05:42)
[2017-06-22 08:04] VITALS: BP 142/65
[2017-06-22] MEDS: DULCOLAX PR SCH (08:11)
[2017-06-22] MEDS: PERIDEX MT SCH (09:20)
[2017-06-22] MEDS: BENTYL PO SCH (09:20)
[2017-06-22] MEDS: DIFLUCAN PO SCH (09:20)
[2017-06-22] MEDS: LOVENOX SUBQ SCH (09:21)
== END 2017-06-22 11:55 | disposition home or self-care (01) ==
LOC: ED 07:13 → SURHOLD 11:12 → ED 11:12 → OBSVTOIN 14:05 → 3S 14:55 → 4N 06-09 09:39
PROVIDERS: ADMIT Surgery; ATTEND Surgery